=== PATIENT | male | born 1985 | race Caucasian/White ===

== ENCOUNTER 2020-01-28 13:12 | Emergency (ER) | payer MEDICAID ==
[~2020-01-28] VITALS: Ht 180.3 cm; Wt 122.5 kg
[2020-01-28 13:19] VITALS: BP 122/63
--- NOTE | 2020-01-28 13:42 | NUR ---
PT AMB TO BED 9.
--- NOTE | 2020-01-28 13:43 | NUR ---
34/M BIB FAMILY C/O COUGH, CONGESTION, BODY ACHES X 3 DAYS. PATIENT STATES PAIN OF 5/10 AT THIS TIME.PATIENT POSITIONED FOR COMFORT; HOB ELEVATED; BEDRAILS UP X1; BED DOWN. ER MD MADE AWARE OF PT STATUS.
--- NOTE | 2020-01-28 13:50 | NUR ---
Patient being evaluated by SUGAR STANLEY at bedside.
--- NOTE | 2020-01-28 14:03 | NUR ---
Patient discharged with v/s stable. Written and verbal after care instructions given and explained. Patient alert, oriented and verbalized understanding of instructions. Ambulatory with steady gait. All questions addressed prior to discharge. ID band removed. Patient advised to follow up with PMD. Rx of FLONASE,IBUPROFEN& PROMETHAZINE given. Patient educated on indication of medication including possible reaction and side effects. Opportunity to ask questions provided and answered.
[2020-01-28 14:04] VITALS: BP 122/63
== END 2020-01-28 14:03 | disposition home or self-care (01) ==
LOC: MED 13:12
DX: J06.9 Acute upper respiratory infection, unspecified (principal)
CPT/HCPCS: 99283